=== PATIENT | female | born 1975 | race Caucasian/White ===

== ENCOUNTER → 2023-09-16 08:57 | Outpatient (REF) | payer BC, SELFPAY | LOC: EMG 08:57 | PROVIDERS: ATTENDING PHYSICIAN Orthopaedic Surgery Hand Surgery; FAMILY PHYSICIAN Internal Medicine | DX: R20.0 Anesthesia of skin (principal); M79.641 Pain in right hand; M79.642 Pain in left hand | CPT/HCPCS: 95886; 95911 ==

== ENCOUNTER → 2024-02-22 06:29 | Day surgery (SDC) | payer BC, SELFPAY | LOC: GI 06:29 | PROVIDERS: ATTENDING PHYSICIAN Internal Medicine Gastroenterology | DX: Z12.11 Encounter for screening for malignant neoplasm of colon (principal); D12.4 Benign neoplasm of descending colon | CPT/HCPCS: 45385; 88305 ==

== ENCOUNTER → 2024-09-11 09:35 | Outpatient (REF) | payer BC, SELFPAY | LOC: HWWDC 09:35 | PROVIDERS: ATTENDING PHYSICIAN Obstetrics & Gynecology Gynecology; FAMILY PHYSICIAN Internal Medicine | DX: Z12.31 Encounter for screening mammogram for malignant neoplasm of breast (principal) | CPT/HCPCS: 77063; 77067 ==